=== PATIENT | female | born 1965 | race Two or more races ===

== ENCOUNTER 2023-05-23 10:30 | Emergency (ER) | payer OTHER ==
[~2023-05-23] VITALS: Ht 162.6 cm; Wt 77.1 kg
== END 2023-05-23 14:43 | disposition home or self-care (01) ==
LOC: ER 10:31
DX: S92.811A Other fracture of right foot, initial encounter for closed fracture (principal); W19.XXXA Unspecified fall, initial encounter; Y93.89 Activity, other specified; Y92.89 Other specified places as the place of occurrence of the external cause; Y99.8 Other external cause status; Z88.0 Allergy status to penicillin